=== PATIENT | male | born 1995 | race Caucasian/White ===

== ENCOUNTER 2018-10-28 17:09 | Emergency (ER) | payer OTHER ==
[~2018-10-28] VITALS: Ht 185.4 cm; Wt 63.5 kg
[2018-10-28 17:35] VITALS: BP 109/82
== END 2018-10-28 20:14 | disposition home or self-care (01) ==
LOC: ER 17:15
DX: M65.841 Other synovitis and tenosynovitis, right hand (principal)
CPT/HCPCS: 29125; 73130